=== PATIENT | male | born 1965 | race Caucasian/White ===

== ENCOUNTER 2016-12-25 10:20 | Day surgery (SDC) | payer OTHER ==
--- NOTE | ~2016-12-25 | EGD ---
EGD REPORT [facility] [address] [place] [address] NAME: LUIGI ANDERSEN IV : 65 STATUS : [facility]#: [id number] AGE: 51 ADM/REG DATE : 12/25/16 MR#: [id number] REPORT SERV DATE: 12/25/16 DICTATED BY: SHAUN COPELAND DATE: 12/25/16 REPORT STATUS : Draft TRANSCRIBED BY: [facility] DATE: 12/25/16 Endoscopy Center Patient Name: Luigi Andersen Date of : 1965 Attending MD: SHAUN COPELAND MD Procedure Date No Time: 12/25/2016 Procedure: Upper GI endoscopy Indications: Gastro-esophageal reflux disease, Follow-up of Helicobacter pylori Referring MD: ROB LIU Medicines: Propofol per Anesthesia Complications: No immediate complications. Estimated blood loss: None. Procedure: Pre-Anesthesia Assessment: - After reviewing the risks and benefits, the patient was deemed in satisfactory condition to undergo the procedure. - Prior to the procedure, a History and Physical was performed, and patient medications and allergies were reviewed. The patient's tolerance of previous anesthesia was also reviewed. The risks and benefits of the procedure and the sedation options and risks were discussed with the patient. All questions were answered, and informed consent was obtained. Prior Anticoagulants: The patient has taken no previous anticoagulant or antiplatelet agents. ASA Grade Assessment: II - A patient with mild systemic disease. After reviewing the risks and benefits, the patient was deemed in satisfactory condition to undergo the procedure. After obtaining informed consent, the endoscope was passed under direct vision. Throughout the procedure, the patient's blood pressure, pulse, and oxygen saturations were monitored continuously. The GIF [id number] was introduced through the mouth, and advanced to the third part of duodenum. The upper GI endoscopy was accomplished without difficulty. The patient tolerated the procedure well. Findings: The examined esophagus was normal. Diffuse mild inflammation characterized by erythema and granularity was found in the gastric antrum. Biopsies were taken with a cold forceps for histology. Estimated blood loss: none. The gastroesophageal junction (on retroflexion) was normal. The examined duodenum was normal. EGD REPORT [address] [address] NAME: LUIGI ANDERSEN IV : 65 STATUS : [facility] PAT#: [id number] AGE: 51 ADM/REG DATE : 12/25/16 MR#: [id number] REPORT SERV DATE: 12/25/16 DICTATED BY: SHAUN COPELAND DATE: 12/25/16 REPORT STATUS : Draft TRANSCRIBED BY: [facility] DATE: 12/25/16 Impression: - Normal esophagus. - Gastritis. Biopsied. - Normal gastroesophageal junction. - Normal examined duodenum. - GERD. Recommendation: - Discharge patient to home (ambulatory). - Return to previous diet. - Continue present medications including Protonix (pantoprazole) 40 mg daily. - Await pathology results. - Perform a colonoscopy today. - Patient has a contact number available for emergencies. The signs and symptoms of potential delayed complications were discussed with the patient. Return to normal activities tomorrow. Written discharge instructions were provided to the patient. Procedure Code(s): --- Professional --- 68221, Esophagogastroduodenoscopy, flexible, transoral; with biopsy, single or multiple Diagnosis Code(s): --- Professional --- K29.70, Gastritis, unspecified, without bleeding K21.9, Gastro-esophageal reflux disease without esophagitis B96.81, Helicobacter pylori [H. pylori] as the cause of diseases classified elsewhere CPT copyright 2013 [employer]. All rights reserved. The codes documented in this report are preliminary and upon tire buffer review may be revised to meet current compliance requirements. SHAUN COPELAND MD 12/25/2016 12:05 PM This report has been signed electronically. Number of Addenda: 0 Note Initiated On: 12/25/2016 11:45 AM Scope Withdrawal Time 0 hours 0 minutes 0 seconds [address] [place] [id number]
--- NOTE | ~2016-12-25 | EGD ---
EGD REPORT [facility] [address] [place] [place] [address] NAME: LUIGI ANDERSEN IV : 65 STATUS : [facility]#: [id number] AGE: 51 ADM/REG DATE : 12/25/16 MR#: [id number] REPORT SERV DATE: 12/25/16 DICTATED BY: SHAUN COPELAND DATE: 12/25/16 REPORT STATUS : Draft TRANSCRIBED BY: [facility] DATE: 12/25/16 Endoscopy Center Patient Name: Luigi Andersen Date of : 1965 Attending MD: SHAUN COPELAND MD Procedure Date No Time: 12/25/2016 Procedure: Colonoscopy Indications: Screening for colorectal malignant neoplasm Referring MD: ROB LIU Medicines: Propofol per Anesthesia Complications: No immediate complications. Estimated blood loss: None. Procedure: Pre-Anesthesia Assessment: - After reviewing the risks and benefits, the patient was deemed in satisfactory condition to undergo the procedure. - Prior to the procedure, a History and Physical was performed, and patient medications and allergies were reviewed. The patient's tolerance of previous anesthesia was also reviewed. The risks and benefits of the procedure and the sedation options and risks were discussed with the patient. All questions were answered, and informed consent was obtained. Prior Anticoagulants: The patient has taken no previous anticoagulant or antiplatelet agents. ASA Grade Assessment: II - A patient with mild systemic disease. After reviewing the risks and benefits, the patient was deemed in satisfactory condition to undergo the procedure. After I obtained informed consent, the scope was passed under direct vision. Throughout the procedure, the patient's blood pressure, pulse, and oxygen saturations were monitored continuously. The CF [id number] was introduced through the anus and advanced to the cecum, identified by appendiceal orifice and ileocecal valve. The colonoscopy was somewhat difficult due to the patient's body habitus. The appendiceal orifice was photographed. The patient tolerated the procedure well. The quality of the bowel preparation was adequate to identify polyps 6 mm and larger in size. The bowel preparation used was polyethylene glycol (PEG). Scope withdrawal time was greater than 7 minutes. Findings: The perianal exam was abnormal. Findings include internal hemorrhoids that do not return to the anal canal, thus continuously prolapsed (Grade IV). EGD REPORT [place] [address] [place]. [address] NAME: LUIGI ANDERSEN IV : [birth year] STATUS : [facility]#: [id number] AGE: 51 ADM/REG DATE : 12/25/16 MR#: [id number] REPORT SERV DATE: 12/25/16 DICTATED BY: SHAUN COPELAND DATE: 12/25/16 REPORT STATUS : Draft TRANSCRIBED BY: [employer] DATE: 12/25/16 A sessile polyp was found in the ascending colon. The polyp was 4 mm in size. The polyp was removed with a cold snare. Resection was complete, but the polyp tissue was not retrieved. Estimated blood loss: none. A sessile polyp was found in the transverse colon. The polyp was diminutive in size. The polyp was removed with a cold snare. Resection and retrieval were complete. Estimated blood loss: none. The exam was otherwise without abnormality. Impression: - Internal hemorrhoids that do not return to the anal canal, thus continuously prolapsed (Grade IV) found on perianal exam. - One 4 mm polyp in the ascending colon. Complete resection. Polyp tissue not retrieved. - One diminutive polyp in the transverse colon. Resected and retrieved. - The examination was otherwise normal. - Lactose intolerance. Recommendation: - Discharge patient to home (ambulatory). - Resume previous diet and medications. - Colorectal Surgery referral. - Await pathology results. - Repeat colonoscopy in 5 years for surveillance. - Patient has a contact number available for emergencies. The signs and symptoms of potential delayed complications were discussed with the patient. Return to normal activities tomorrow. Written discharge instructions were provided to the patient. Procedure Code(s): --- Professional --- 86711, Colonoscopy, flexible, proximal to splenic flexure; with removal of tumor(s), polyp(s), or other lesion(s) by snare technique Diagnosis Code(s): --- Professional --- K64.3, Fourth degree hemorrhoids D12.3, Benign neoplasm of transverse colon D12.2, Benign neoplasm of ascending colon Z12.11, Encounter for screening for malignant neoplasm of colon CPT copyright 2013 [employer]. All rights reserved. The codes documented in this report are preliminary and upon director data review may be revised to meet current compliance requirements. EGD REPORT [facility] [address] [address] NAME: LUIGI ANDERSEN IV : [birth year] STATUS : [facility] PAT#: [id number] AGE: 51 ADM/REG DATE : 12/25/16 MR#: [id number] REPORT SERV DATE: 12/25/16 DICTATED BY: SHAUN COPELAND DATE: 12/25/16 REPORT STATUS : Draft TRANSCRIBED BY: [employer] DATE: 12/25/16 SHAUN COPELAND MD 12/25/2016 12:25 PM This report has been signed electronically. Number of Addenda: 0 Note Initiated On: 12/25/2016 11:44 AM Scope Withdrawal Time 0 hours 7 minutes 58 seconds [address] [id number]
[~2016-12-25 10:20] MED LIST: LIPITOR40 PO; LISINOPRIL40 MG PO; PROTONIX PO; Z300 PO; ZYRTEC ALLGY10 MG PO
== END 2016-12-25 23:59 | disposition home or self-care (01) ==
LOC: DMU 10:20
PROVIDERS: Internal Medicine Gastroenterology
PROC: 0DB68ZX Excision of Stomach, Via Natural or Artificial Opening Endoscopic, Diagnostic (ICD-10-PCS; 2016-12-25)
PROC: 0DBK8ZZ Excision of Ascending Colon, Via Natural or Artificial Opening Endoscopic (ICD-10-PCS; principal; 2016-12-25 11:30)
PROC: 0DBL8ZZ Excision of Transverse Colon, Via Natural or Artificial Opening Endoscopic (ICD-10-PCS; 2016-12-25 11:30)
DX: Z12.11 Encounter for screening for malignant neoplasm of colon (principal); K29.50 Unspecified chronic gastritis without bleeding; D12.3 Benign neoplasm of transverse colon; K64.3 Fourth degree hemorrhoids; E73.9 Lactose intolerance, unspecified; K21.9 Gastro-esophageal reflux disease without esophagitis; I10 Essential (primary) hypertension; G47.33 Obstructive sleep apnea (adult) (pediatric); Z79.899 Other long term (current) drug therapy; E78.00 Pure hypercholesterolemia, unspecified; Z98.890 Other specified postprocedural states
CPT/HCPCS: 88305